=== PATIENT | female | born 1950 | race Caucasian/White ===

== ENCOUNTER 2017-11-14 23:02 | Emergency (ER) | payer MEDICARE, OTHER ==
[~2017-11-14] VITALS: Ht 162.6 cm; Wt 73.5 kg
[~2017-11-14 23:02] MED LIST: ABAT250V; ASPI81CH PO; ATOR20 PO; FLUO20 PO; Flonase 0.05% N16 GM; HYDCHL25 PO; LORA10 PO; LOSA50 PO; METF500 PO; METO50ER PO; MONT10T PO; NORT10 PO; Norvasc2.5 MG PO; ONDA4 PO; Omeprazole20 M1; POTCHL10ER PO; POTCIT10 PO; ROSU10TA PO
[2017-11-14 23:59] LABS: BASOPHILS ABSOLUTE AUTO 0.06 K/mm3 (0.00-0.23); BASOPHILS PERCENT AUTO 1 % (0-2); EOSINOPHILS ABSOLUTE AUTO 0.13 K/mm3 (0.00-0.68); EOSINOPHILS PERCENT AUTO 1 % (0-6); Hematocrit 42.6 % (33.0-51.0); Hemoglobin 14.7 g/dL (11.5-16.0); IMMATURE GRAN ABSOLUTE AUTO 0.08 K/mm3 (0.00-0.10); IMMATURE GRAN PERCENT AUTO 1 % (0-1); LYMPHOCYTES ABSOLUTE AUTO 2.88 K/mm3 (0.84-5.20); LYMPHOCYTES PERCENT AUTO 26 % (21-46); MONOCYTES ABSOLUTE AUTO 1.15 K/mm3 (0.16-1.47); MONOCYTES PERCENT AUTO 10 % (4-13); Mean Corpuscular HGB 30.4 pg (26.0-34.0); Mean Corpuscular HGB Conc 34.5 g/dL (31.5-36.5); Mean Corpuscular Volume 88 fL (80-100); Mean Platelet Volume 8.6 fL (9.1-12.4); NEUTROPHILS ABSOLUTE AUTO 6.96 K/mm3 (1.96-9.15); NEUTROPHILS PERCENT AUTO 62 % (41-73); Platelet Count 368 K/mm3 (150-400); RDW Coefficient Variation 11.5 % (11.7-14.2); RDW Standard Deviation 36.6 fL (35.1-46.3); Red Blood Cell Count 4.83 M/mm3 (3.80-5.20); White Blood Cell Count 11.26 K/mm3 (4.00-11.30)
[2017-11-15 00:21] LABS: Alanine Aminotransfer (ALT/SGP 29 U/L (12-78); Albumin, Blood 4.3 g/dL (3.4-5.0); Albumin/Globulin Ratio 1.2 (0.8-1.8); Alk Phos 164 U/L (50-136); Anion Gap 11 mmol/L (6-16); Aspartate Aminotrans (AST/SGOT 14 U/L (12-37); Bilirubin, Total 0.3 mg/dL (0.1-1.0); Blood Urea Nitrogen 16 mg/dL (8-24); Bun/Creatinine Ratio 25.2 (12.0-20.0); CO2, Blood 26 mmol/L (21-32); Calcium, Blood 9.5 mg/dL (8.5-10.1); Chloride, Blood 98 mmol/L (98-108); Creatinine, Blood 0.64 mg/dL (0.40-1.00); Globulin, Blood 3.7 g/dL (2.2-4.0); Glomerular Filtration Rate >60 (60-); Glucose, Blood 264 mg/dL (70-99); Potassium, Blood 3.8 mmol/L (3.5-5.5); Sodium, Blood 135 mmol/L (136-145); Troponin I <0.015 ng/mL (0.000-0.040)
== END 2017-11-15 01:38 | disposition home or self-care (01) ==
LOC: ER 23:02
PROVIDERS: Emergency Medicine
DX: K29.70 Gastritis, unspecified, without bleeding (principal); Z88.8 Allergy status to other drugs, medicaments and biological substances; Z79.899 Other long term (current) drug therapy; Z79.84 Long term (current) use of oral hypoglycemic drugs; Z79.82 Long term (current) use of aspirin; I10 Essential (primary) hypertension; E11.9 Type 2 diabetes mellitus without complications; K21.9 Gastro-esophageal reflux disease without esophagitis
CPT/HCPCS: 36415; 71046; 80053; 84484; 85025; 93005; 93010; 99283

== ENCOUNTER → 2019-11-21 | Outpatient (CLI) | payer MEDICARE, BC | END | disposition home or self-care (01) | LOC: PLD 11:46 → LAB SHORT 11:46 | DX: L83 Acanthosis nigricans (principal); L57.0 Actinic keratosis | CPT/HCPCS: 88305 ==

== ENCOUNTER → 2020-08-14 | Outpatient (CLI) | payer MEDICARE, BC | END | disposition home or self-care (01) | LOC: LAB SHORT 11:01 → PLD 11:01 | DX: D48.5 Neoplasm of uncertain behavior of skin (principal) | CPT/HCPCS: 88305 ==

== ENCOUNTER 2021-01-10 11:49 | Day surgery (SDC) | payer MEDICARE, BC ==
[~2021-01-10] VITALS: Ht 162.6 cm; Wt 71.5 kg
[~2021-01-10 11:49] MED LIST changes: +ACYC400 PO; +Aspirin EC81 MG PO; +Citrucel500 MG PO; +FLUO10 PO; +HYDCHL12.5 PO; +KLOR-CON 1010 ME1 PO; +METO50 PO; +NIFE30ER PO; +TELM40 PO; +VITAMIN D325 MC3 PO
[2021-01-10] MEDS ORDERED: POTA10T (12:44)
--- NOTE | 2021-01-10 13:30 | NUR ---
01/10/21 Dulce Maria Mccord USED PINK SCOPE ONLY TO 30CM, SCOPE OUT AND SWITCHED TO RED/GREEN.
--- NOTE | 2021-01-10 14:43 | NUR ---
01/10/21 1443 Dulce Maria Bill PT WILL HAVE BARIUM ENEMA AT [facility] ON 01/11/21 CHECK IN AT 0830 WITH SCAN AT 0900. WILL STAY ON CLEAR LIQUIDS TODAY FOR SCAN TOMORROW. PT AWARE OF THESE INSTRUCTIONS AND INFORMATION AND WILL FOLLOW THEM FOR TOMORROW. INFORMED WELL.
== END 2021-01-10 14:44 | disposition home or self-care (01) ==
LOC: ORSCSDS 11:49
PROVIDERS: Surgery
PROC: 0DJD8ZZ Inspection of Lower Intestinal Tract, Via Natural or Artificial Opening Endoscopic (ICD-10-PCS; principal; 2021-01-10 13:00)
DX: Z12.11 Encounter for screening for malignant neoplasm of colon (principal); K57.30 Diverticulosis of large intestine without perforation or abscess without bleeding; I10 Essential (primary) hypertension; E78.5 Hyperlipidemia, unspecified; I25.10 Atherosclerotic heart disease of native coronary artery without angina pectoris; G47.33 Obstructive sleep apnea (adult) (pediatric); K21.9 Gastro-esophageal reflux disease without esophagitis; E11.9 Type 2 diabetes mellitus without complications; I69.810 Attention and concentration deficit following other cerebrovascular disease; Z79.899 Other long term (current) drug therapy; Z79.82 Long term (current) use of aspirin
CPT/HCPCS: 82947; J2704; J7120

== ENCOUNTER → 2021-11-04 | Outpatient (CLI) | payer MEDICARE, BC ==
[~2021-11-04] MED LIST changes: +POTA10T
== END | disposition home or self-care (01) ==
LOC: LAB SHORT 08:32
DX: D48.5 Neoplasm of uncertain behavior of skin (principal)
CPT/HCPCS: 88305

== ENCOUNTER → 2022-05-21 | Outpatient (CLI) | payer MEDICARE, BC | END | disposition home or self-care (01) | LOC: PLD 15:17 → LAB SHORT 15:17 | DX: D22.5 Melanocytic nevi of trunk (principal) | CPT/HCPCS: 88305 ==

== ENCOUNTER → 2023-03-08 | Outpatient (CLI) | payer MEDICARE, BC | END | disposition home or self-care (01) | LOC: LAB 14:30 → LAB SHORT 14:30 | DX: R21 Rash and other nonspecific skin eruption (principal) | CPT/HCPCS: 87070; 87205 ==

== ENCOUNTER 2023-04-20 06:18 | Day surgery (SDC) | payer MEDICARE, BC ==
[~2023-04-20] VITALS: Ht 162.6 cm; Wt 74.6 kg
[2023-04-20] MEDS ORDERED: POTASSIUM CITR10 ME2 PO (07:12)
--- NOTE | 2023-04-20 09:01 | NUR ---
04/20/23 0901 ANN WREN PAIN 05/21. FENTANYL 25MCG GIVEN NOW. SCANNER WILL NOT WORK FOR MED. WILL SCAN ON ANOTHER MACHINE IN SDU.
--- NOTE | 2023-04-20 09:25 | NUR ---
04/20/23 0925 ANN WREN CURRENTLY PAIN IS 4/10 WITH 100MCG OF FENTANYL. PT SITTING IN RECLINER EATING APPLE JUICE AND STRING CHEESE. PT ALREADY STATES PAIN 5/10 IN JUST A MATTER OF SECONDS.
[2023-04-20 09:35] VITALS: BP 133/50
== END 2023-04-20 10:16 | disposition home or self-care (01) ==
LOC: ORSCSDS 06:18
PROVIDERS: Orthopaedic Surgery
PROC: 0SBC4ZZ Excision of Right Knee Joint, Percutaneous Endoscopic Approach (ICD-10-PCS; principal; 2023-04-20 07:30)
DX: M17.11 Unilateral primary osteoarthritis, right knee (principal); M23.91 Unspecified internal derangement of right knee; M94.261 Chondromalacia, right knee; I10 Essential (primary) hypertension; E78.5 Hyperlipidemia, unspecified; I25.10 Atherosclerotic heart disease of native coronary artery without angina pectoris; G47.33 Obstructive sleep apnea (adult) (pediatric); E11.9 Type 2 diabetes mellitus without complications; Z79.84 Long term (current) use of oral hypoglycemic drugs; Z86.73 Personal history of transient ischemic attack (TIA), and cerebral infarction without residual deficits; Z79.899 Other long term (current) drug therapy; Z79.82 Long term (current) use of aspirin
CPT/HCPCS: 82947; A9270; J0171; J0690; J1100; J1885; J2250; J2405; J2704; J2795; J3010; J7120

== ENCOUNTER 2023-06-17 06:16 | Day surgery (SDC) | payer MEDICARE, BC ==
[~2023-06-17] VITALS: Ht 162.6 cm; Wt 73.9 kg
[~2023-06-17 06:16] MED LIST changes: +POTASSIUM CITR10 ME2 PO
--- NOTE | 2023-06-17 08:15 | NUR ---
06/17/23 0815 Zena Hinojosa 5ML OF LIDOCAINE 2% WITH EPI 1:100,000 DILUTED 1:1 WITH NORMAL SALINE TO MAKE LIDOCAINE 1% WITH EPI 1:200,000 FOR INJECTION AT THE OPSITE BY DR BURNS. 2.5ML OF LOCAL INJECTED.
[2023-06-17 10:35] VITALS: BP 157/75
--- NOTE | 2023-06-17 10:51 | NUR ---
06/17/23 1051 Henok Jarrell iv removed intact. SITE WNL.
== END 2023-06-17 10:55 | disposition home or self-care (01) ==
LOC: ORSCSDS 06:16
PROVIDERS: Otolaryngology
PROC: 0GTH0ZZ Resection of Right Thyroid Gland Lobe, Open Approach (ICD-10-PCS; principal; 2023-06-17 07:30)
DX: E04.1 Nontoxic single thyroid nodule (principal); E04.9 Nontoxic goiter, unspecified; G47.33 Obstructive sleep apnea (adult) (pediatric); G45.9 Transient cerebral ischemic attack, unspecified; K21.9 Gastro-esophageal reflux disease without esophagitis; Z79.899 Other long term (current) drug therapy; E11.9 Type 2 diabetes mellitus without complications; Z79.84 Long term (current) use of oral hypoglycemic drugs; I10 Essential (primary) hypertension; Z79.82 Long term (current) use of aspirin
CPT/HCPCS: 82947; 88307; J2250; J2704; J3010; J7120